=== PATIENT | female | born 1970 | race Caucasian/White ===

== ENCOUNTER 2020-10-05 06:29 | Day surgery (SDC) | payer BC ==
[2020-10-05] MEDS ORDERED: Propofol 200 MG/20 ML SDV IV ONE (06:30)
[2020-10-05] MEDS ORDERED: Scopolamine 1.5 MG Transdermal Patch TOP ONE (06:30)
[2020-10-05] MEDS ORDERED: Midazolam 1 MG/ML 2 ML SDV IV ONE (06:30)
[2020-10-05] MEDS ORDERED: Glycopyrrolate 0.2 MG/ML 5 ML MDV IV ONE (06:30)
[2020-10-05] MEDS ORDERED: Ketorolac 30 MG/ML SDV IVPUSH ONE (06:30)
[2020-10-05] MEDS ORDERED: Lactated Ringers 1,000 ML IV ONE (06:30)
[2020-10-05] MEDS ORDERED: Rocuronium 100 MG/10 ML MDV IV ONE (06:30)
[2020-10-05] MEDS ORDERED: Ondansetron 4 MG/2 ML SDV IVPUSH ONE ×2 (06:30→09:55)
[2020-10-05] MEDS ORDERED: fentaNYL 100 MCG/2 ML SDV IV ONE (06:30)
[2020-10-05] MEDS ORDERED: Neostigmine Methylsulfate 10 MG/10 ML MDV IVPUSH ONE (06:30)
[2020-10-05] MEDS ORDERED: Lactated Ringers 1,000 ML IV SCH (06:45)
[2020-10-05] MEDS ORDERED: Sodium Chloride 0.9% 10 ML Syringe FLUSH PRN (06:45)
--- NOTE | 2020-10-05 08:34 | PCM.HPR ---
H & P Addendum review - H & P Addendum Review Date of Original H & P: 09/28/20 Date Reviewed: 10/05/20 Time Reviewed: 08:00 Patient was Examined: No Changes (BG US with Kinevac last week reproduced her symptoms at 9, had good ejrction fraction. Consistent with chronic cholecystitis. Reecommend lap lianne. Discussed procedure, risks and complications, consent obtained.)
--- NOTE | 2020-10-05 09:34 | PCM.OPNOTE ---
- General Post-Op/Procedure Note Date of Surgery/Procedure: 10/05/20 Operative Procedure(s): Lap Christie Pre Op Diagnosis: Chronic Cholecystitis Post-Op Diagnosis: Same Anesthesia Technique: General ET Tube Primary Surgeon: Matt Silva Anesthesia Provider: Betito CUEVAS in mLs: 5 Complications: None Condition: Good
[2020-10-05] MEDS ORDERED: Morphine 2 MG/ML SYRINGE IVPUSH PRN (09:37)
[2020-10-05] MEDS ORDERED: Acetaminophen/HYDROcodone 325-5 MG Tab PO PRN (09:37)
[2020-10-05] MEDS ORDERED: Morphine 2 MG/ML SYRINGE IVPUSH ONE (09:56)
--- NOTE | 2020-10-05 10:26 | OR ---
DATE OF OPERATION: 10/05/2020 SURGEON: Matt Silva MD PREOPERATIVE DIAGNOSIS: Chronic cholecystitis. POSTOPERATIVE DIAGNOSIS: Chronic cholecystitis. PROCEDURE: Laparoscopic cholecystectomy. ANESTHESIA: General. PROCEDURE IN DETAIL: The patient was brought to the operating room, where general endotracheal anesthesia was administered. A time-out was performed. The abdomen was prepped and draped sterilely. An infraumbilical incision was made and extended into the peritoneal cavity without difficulty. The Last cannulator was introduced and pneumoperitoneum obtained. The remaining three 5 mm ports were placed in the usual positions. The patient was placed in reverse Trendelenburg position and rotated to the left. The gallbladder was grasped and retracted cephalad. The cystic duct and cystic artery were dissected free with minimal difficulty. There was some fibrosis and many small vessels present. These were either cauterized or clipped. The cystic artery was doubly clipped proximally and once distally and then transected. A posterior branch of the cystic artery was doubly clipped proximally and cauterized distally. Anatomy of the cystic duct was confirmed and could be seen entering the gallbladder and extending towards the common bile duct. This was milked back into the gallbladder, then doubly clipped proximally and once distally and then transected. The gallbladder was then removed from the bed of the liver using electrocautery. A few more small vessels were encountered that were clipped proximally and cauterized distally. Once the gallbladder was completely freed up, it was brought out through the umbilical incision site. Right upper quadrant was thoroughly irrigated and inspected and return was clear and hemostasis assured. Ports were removed under direct vision and remained hemostatic. Umbilical fascia was closed with [id number] #0 Vicryl. The skin was closed with #4-0 Vicryl subcuticular sutures. Benzoin and Steri-Strips were placed and Band-Aids applied. The patient tolerated the procedure well. Estimated blood loss was 5 mL. She returned to postanesthesia in stable condition. /[id number] FRANK/DONAVAN
== END 2020-10-05 11:23 | disposition home or self-care (01) ==
LOC: FB.SDS 06:29
PROVIDERS: ATTEND Surgery
DX: K81.1 Chronic cholecystitis (principal); E11.9 Type 2 diabetes mellitus without complications; Z79.899 Other long term (current) drug therapy; Z01.812 Encounter for preprocedural laboratory examination; Z20.828 Contact with and (suspected) exposure to other viral communicable diseases
CPT/HCPCS: 00790-QZ; 81025; 82962; 94150; A9270-GY; J1885; J2250; J2270; J2405; J2704; J2710; J3010; J3490; J7120; U0002